=== PATIENT | female | born 1965 | race Caucasian/White ===

== ENCOUNTER 2020-09-20 19:07 | Emergency (ER) | payer BC ==
[2020-09-20] MEDS ORDERED: PERCOCET TABLET 5/325MG PO ONE (19:35)
[2020-09-20] MEDS ORDERED: PERCOCET TABLET 5/325MG ONE (19:38)
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
[2020-09-20] MEDS ORDERED: NORCO 5/325 MG PO ONE (20:44)
[2020-09-20 20:45] VITALS: BP 146/76; PULSE 76; O2SAT 98
[2020-09-20] MEDS ORDERED: NORCO 5/325 MG ONE (20:46)
--- NOTE | 2020-09-21 08:06 | XRAY ---
Indication: Pain following fall. Comparison: None 3 view right ankle demonstrates mild soft tissue swelling and 2 tiny lateral malleolus tip heterotopic ossifications either developmental versus degenerative versus old injury. Tiny posterior heel spur. No other bony, articular, or soft tissue abnormalities.
--- NOTE | 2020-09-21 08:06 | XRAY ---
Indication: Pain following fall. Comparison: None 3 nonweightbearing views right foot demonstrates tiny posterior heel spur. No other bony, articular, or soft tissue abnormalities.
== END 2020-09-20 20:12 | disposition home or self-care (01) ==
LOC: ED 19:07
DX: S82.61XA Displaced fracture of lateral malleolus of right fibula, initial encounter for closed fracture (principal); W17.89XA Other fall from one level to another, initial encounter
CPT/HCPCS: 73610; 73630; 99283; L4386; A9270-GY

== ENCOUNTER 2021-09-28 05:56 | Day surgery (SDC) | payer BC ==
[2021-09-28] MEDS ORDERED: Lactated Ringers 1,000 ML IV ONE (06:46)
[2021-09-28] MEDS ORDERED: Lactated Ringers 1,000 ML IV SCH (07:00)
[2021-09-28] MEDS ORDERED: Xylocaine-Mpf 2% 5 Ml Vial ONE (07:20)
[2021-09-28] MEDS ORDERED: DIPRIVAN 200 MG/20 ML IV ONE ×2 (07:20→07:40)
[2021-09-28] MEDS ORDERED: ATROPINE SULFATE 1MG ONE (07:29)
[2021-09-28 08:45] VITALS: BP 134/69; PULSE 66; O2SAT 97
--- NOTE | 2021-09-28 13:33 | OP ---
SURGERY DATE/TIME: 09/28/2021 0721 PREOPERATIVE DIAGNOSIS: History of multiple colon polyps. POSTOPERATIVE DIAGNOSIS: Small polyp in the sigmoid colon. PROCEDURE: Colonoscopy with cold forceps biopsy. SURGEON: Dr. Carter. ANESTHESIA: MAC. Medications given by anesthesia department. HISTORY: The patient is a 56-year-old white female reports that she has had multiple colon examinations with polyps and multiple times that she had evaluation but she does not know the pathology reports. The patient knows her last one was five years ago and the patient was felt the need to have endoscopic evaluation for surveillance. She was appraised of the risks of the procedure including the risk of perforation, phlebitis, untoward reaction to medication, bleeding and missed lesions. The patient verbalized her understanding and desired to have the procedure performed. DESCRIPTION OF PROCEDURE: The patient was given the medications by the anesthesia department. She had continuous pulse oximetry, ECG monitoring, intermittent blood pressure monitoring and tidal CO2 monitoring during the examination. She was placed in the left lateral decubitus position. A digital rectal examination was performed and revealed normal anal sphincter tone and no masses. The flexible Olympus pediatric colonoscope was used to intubate the rectum. A view of the colon was developed sequentially to the cecum. Upon insertion and withdrawal, including a retroflex view in the rectum was noted one small sessile polyp in the sigmoid colon which was biopsied using cold biopsy technique. The scope was removed from the patient who tolerated the procedure well and was sent back to OP recovery in good condition. The prep was noted to be good.
== END 2021-09-28 08:35 | disposition home or self-care (01) ==
LOC: SDC 05:56
PROVIDERS: ATTEND Family Medicine
DX: Z09 Encounter for follow-up examination after completed treatment for conditions other than malignant neoplasm (principal); Z86.010 Personal history of colon polyps; K63.5 Polyp of colon
CPT/HCPCS: J0461; J2704

== ENCOUNTER 2024-03-05 14:50 | Emergency (ER) | payer SELFPAY ==
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
[2024-03-05 15:25] VITALS: TEMP 98.7
[2024-03-05] MEDS ORDERED: NORCO 5/325 MG ONE ×2 (15:29→20:12)
[2024-03-05] MEDS: NORCO 5/325 MG PO ONE ×2 (15:31→20:14)
[2024-03-05] MEDS ORDERED: ZOFRAN ODT 4 MG ONE (18:09)
[2024-03-05] MEDS: ZOFRAN ODT 4 MG PO ONE (18:10)
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
[2024-03-05 20:17] VITALS: RESP 18
[2024-03-05 20:40] VITALS: BP 126/76; PULSE 65; O2SAT 97
== END 2024-03-05 20:48 | disposition home or self-care (01) ==
LOC: ED 14:50
DX: R51.9 Headache, unspecified (principal); M54.9 Dorsalgia, unspecified; M79.602 Pain in left arm; M79.601 Pain in right arm; M79.605 Pain in left leg; M79.604 Pain in right leg; V43.52XA Car driver injured in collision with other type car in traffic accident, initial encounter; R42 Dizziness and giddiness
CPT/HCPCS: 70450; 72125; 72128; 72131; 99284; Q0162; A9270-GY